=== PATIENT | female | born 1950 | race Caucasian/White ===

== ENCOUNTER 2023-01-07 05:08 | Inpatient (IN) | payer OTHER ==
[2023-01-05 12:24] VITALS: BMI 30.2
[2023-01-07] MEDS ORDERED: ceFAZolin SODIUM 1 GM VIAL ONE (10:39)
[2023-01-07] MEDS ORDERED: CEFAZOLIN 2 GM in DEXTROSE 5%-WATER - 100 ML IVPB ONE (11:00)
[2023-01-07] MEDS ORDERED: HEPARIN NA (PORCINE) 5,000 UNITS/ML 1ML VIAL ONE ×2 (11:16→13:52)
[2023-01-07] MEDS ORDERED: LIDOCAINE HCL 0.5%, 5 MG/ML (50mL SDVIAL) ONE (11:16)
[2023-01-07] MEDS ORDERED: DEXAMETHASONE SOD PHOSPHATE 4 MG/1 ML VIAL ONE (12:02)
[2023-01-07] MEDS ORDERED: ROPIVACAINE HCL 0.5% 30ML VIAL ONE (12:02)
[2023-01-07] MEDS ORDERED: VASOPRESSIN 20 UNITS/ML VIAL IV ONE (12:02)
[2023-01-07] MEDS ORDERED: PROPOFOL 40 ML ONE (12:05)
[2023-01-07] MEDS ORDERED: FENTANYL CITRATE/PF 50 MCG/ML VIAL ONE ×2 (12:05→13:23)
[2023-01-07] MEDS ORDERED: MIDAZOLAM HCL 2 MG/2 ML SINGLE DOSE VIAL ONE (12:08)
[2023-01-07] MEDS ORDERED: niCARdipine HCL 25 MG/10 ML AMPUL IVPB ONE (12:23)
[2023-01-07] MEDS ORDERED: LIDOCAINE HCL/PF 2% SDV 5ML VIAL ONE (12:38)
[2023-01-07] MEDS ORDERED: ceFAZolin SODIUM 1 GM VIAL IVPB ONE (13:33)
[2023-01-07] MEDS ORDERED: HYDROmorphone HCl 2 MG/ML VIAL ONE (13:38)
[2023-01-07] MEDS ORDERED: SUGAMMADEX SODIUM 200 MG/2 ML VIAL ONE (14:40)
[2023-01-07] MEDS ORDERED: GENTAMICIN SO4 80 MG/2 ML VIAL ONE (15:24)
[2023-01-07] MEDS ORDERED: GENTAMICIN SO4 80 MG/2 ML VIAL IVPB ONE (15:26)
[2023-01-07] MEDS ORDERED: POVIDONE-IODINE OINTMENT 10% - 28.4 GM TUBE ONE (15:31)
[2023-01-07] MEDS ORDERED: LABETALOL HCL 20 MG/4 ML VIAL ONE (15:32)
[2023-01-07] MEDS ORDERED: ACETAMINOPHEN INJECTION 100 ML IVPB ONE (15:33)
[2023-01-07] MEDS ORDERED: ONDANSETRON 4 MG/2 ML VIAL IVPUSH PRN (16:09)
[2023-01-07] MEDS ORDERED: LACTATED RINGERS SOLUTION 1,000 ML IV SCH (16:15)
[2023-01-07] MEDS ORDERED: morphine SULFATE 4 MG/ML VIAL IVPUSH PRN (16:36)
[2023-01-07] MEDS ORDERED: oxyCODONE HCL 5 MG TABLET PO PRN (16:39)
[2023-01-07] MEDS: ACETAMINOPHEN 1000 MG/100 ML BAG IVPB SCH (21:15)
[2023-01-07] MEDS: CEFAZOLIN 1 GM in DEXTROSE 5%-WATER - 50 ML IVPB SCH (21:15)
[2023-01-07] MEDS: MUPIROCIN 2% TOPICAL OINTMENT FOR DECOLONIZATION NS SCH (21:16)
[2023-01-07] MEDS: ASPIRIN COATED 81 MG TABLET.EC PO SCH (21:16)
[2023-01-07] MEDS ORDERED: ATORVASTATIN CA 40 MG TABLET (FP) PO SCH (22:00)
[2023-01-07] MEDS ORDERED: CHLORHEXIDINE GLUCONATE 4% CLEANSER FOR DECOLONIZATION TP SCH (22:00)
[2023-01-07] MEDS: NICOTINE 14 MG/24 HOURS TOPICAL PATCH TD SCH (22:36)
[2023-01-08] MEDS: ACETAMINOPHEN 1000 MG/100 ML BAG IVPB SCH ×2 (03:38→09:28)
[2023-01-08] MEDS: CEFAZOLIN 1 GM in DEXTROSE 5%-WATER - 50 ML IVPB SCH (04:34)
[2023-01-08 07:20] LABS: BASO % 0.2 % (0-2.0); HEMATOCRIT 27.5 % (32.4-45.2); HEMOGLOBIN 9.2 GM/dL (10.7-15.3); LYMPH % 9.6 % (8-40); MCHC 33.4 g/dl (32.0-36.0); MEAN CELL VOLUME 89.7 fl (80-96); MEAN PLT VOLUME 10.2 fl (7.5-11.1); MONO % 5.7 % (3.8-10.2); NEUT % 84.5 % (42.8-82.8); PLATELET COUNT 180 10^3/uL (134-434); RBC 3.06 M/mm3 (3.60-5.2); RDW 13.7 % (11.6-15.6); WHITE BLOOD COUNT 15.7 K/mm3 (4.0-10.0)
[2023-01-08 08:00] LABS: ALBUMIN 3.1 g/dl (3.4-5.0); BLOOD UREA NITROGEN 17.8 mg/dL (7-18); CALCIUM 8.2 mg/dL (8.5-10.1)
[2023-01-08 08:03] LABS: CREATININE 0.8 mg/dL (0.55-1.3)
[2023-01-08 08:05] LABS: BILIRUBIN,TOTAL 0.6 mg/dL (0.2-1); TOT PROT 5.9 g/dl (6.4-8.2)
[2023-01-08] MEDS: MUPIROCIN 2% TOPICAL OINTMENT FOR DECOLONIZATION NS SCH (09:22)
[2023-01-08] MEDS: ASPIRIN COATED 81 MG TABLET.EC PO SCH (09:24)
[2023-01-08] MEDS: NICOTINE 14 MG/24 HOURS TOPICAL PATCH TD SCH (09:24)
[2023-01-08] MEDS ORDERED: NIFEdipine E.R. 30 MG TABLET PO SCH (10:00)
[2023-01-08] MEDS ORDERED: LISINOPRIL 20 MG TABLET PO SCH (10:00)
[2023-01-08] MEDS ORDERED: PNEUMOC 20-VAL CONJ-DIP CRM/PF 0.5 ML SYRINGE IM ONE (11:00)
[2023-01-08] MEDS ORDERED: ACETAMINOPHEN 500 MG TABLET (FP) PO SCH (15:30)
[2023-01-08 18:19] VITALS: RESP 22
[2023-01-08 18:20] VITALS: BP 144/64; PULSE 82; TEMP 98.7
== END 2023-01-08 18:00 | disposition home or self-care (01) | DRG 39 ==
LOC: J2C 05:08 → JICU 17:51
PROVIDERS: ADMIT Family Medicine; ATTEND Family Medicine
PROC: 05B Upper Veins, Excision (ICD-10-PCS; 2023-01-07)
PROC: 03CJ0ZZ Extirpation of Matter from Left Common Carotid Artery, Open Approach (ICD-10-PCS; principal; 2023-01-07 12:00)
DX: I65.22 Occlusion and stenosis of left carotid artery (principal); I10 Essential (primary) hypertension; E78.5 Hyperlipidemia, unspecified; M75.02 Adhesive capsulitis of left shoulder
CPT/HCPCS: 36415; 80053; 85025; 86900; 86922; 87635; 88304-TC; 88311-TC; 90677; 94760; J1644